=== PATIENT | male | born 1980 | race Caucasian/White ===

== ENCOUNTER → 2019-05-08 | Outpatient (CLI) | payer OTHER ==
[~2019-05-08] MED LIST: PROHANCE 279.3MG/ML 15ML VIAL (A9576) As Ordered ONE; PROHANCE 279.3MG/ML 5ML VIAL (A9576) As Ordered ONE
--- NOTE | 2019-05-08 09:18 | REP ---
MRI OF THE RIGHT FOOT WITH AND WITHOUT CONTRAST: TECHNIQUE: Multiple sequences obtained in the axial, coronal, and sagittal planes prior to and following the intravenous administration of 19 mL ProHance. There is ill-defined diffuse marrow edema throughout the third proximal phalanx compatible with clinical impression of stress fracture. There is mild marrow edema in the distal ends of the second and third metatarsals compatible with stress related changes. There is surrounding ill-defined soft tissue edema in this region of the forefoot with mild ill-defined enhancement as well. No other abnormal bone marrow signal or enhancement is seen. Remainder of the soft tissue structures demonstrate no signal abnormality. Visualized tendons and ligaments appear intact. There is no evidence of tenosynovitis. No enhancing soft tissue mass is seen. IMPRESSION: Findings compatible with stress fracture of the third proximal phalanx with mild stress related changes also seen in the distal ends of second and third metatarsals. There is surrounding soft tissue edema. Electronically Signed by Hardik Alicea MD 05/08/2019 10:06 A
== END ==
LOC: M RAD 07:15
PROVIDERS: ATTEND Podiatrist Foot & Ankle Surgery
DX: M79.89 Other specified soft tissue disorders (principal); M84.374A Stress fracture, right foot, initial encounter for fracture; X58.XXXA Exposure to other specified factors, initial encounter; Y92.9 Unspecified place or not applicable
CPT/HCPCS: 73720; A9576

== ENCOUNTER → 2025-03-11 | Outpatient (CLI) | payer OTHER | LOC: M CARPUL 14:13 | PROVIDERS: ATTEND Internal Medicine | DX: R01.1 Cardiac murmur, unspecified (principal) ==